=== PATIENT | female | born 1930 | race Caucasian/White ===

== ENCOUNTER 2019-09-06 09:43 | Emergency (ER) | payer MEDICARE ==
[~2019-09-06] VITALS: Ht 157.5 cm; Wt 51.4 kg
[~2019-09-06 09:43] MED LIST: ALEN70TA13 PO; CALC-855 PO; DIGO125T97 PO; FAMO40TA7 PO; LABE100T5 PO; LEVO88TA2 PO; RIVA20TA PO
--- NOTE | 2019-09-06 10:06 | NUR ---
MD in at bedside.
--- NOTE | 2019-09-06 10:14 | NUR ---
Pt changed into gown, placed on CM, NiBP, SpO2. On gurney, in POC. Warm blankets given. IV established.
--- NOTE | 2019-09-06 10:16 | NUR ---
Xray in at bedside.
[2019-09-06 10:36] LABS: BASOPHILS # (AUTO) 0.1 X10'3 (0-0.2); BASOPHILS % (AUTO) 1.4 % (0-1); EOSINOPHILS # (AUTO) 0.5 X10'3 (0-0.9); EOSINOPHILS % (AUTO) 10.7 % (0-6); HEMATOCRIT 44.2 % (35.0-45.0); HEMOGLOBIN 14.6 g/dl (12.0-16.0); LYMPHOCYTES # (AUTO) 1.5 X10'3 (1.1-4.8); LYMPHOCYTES % (AUTO) 30.2 % (21-51); MEAN CORPUSCULAR HEMOGLOBIN 31.5 PG (27.0-31.0); MEAN CORPUSCULAR HGB CONC 33.1 g/dL (33.0-36.5); MEAN CORPUSCULAR VOLUME 95.2 FL (78-98); MEAN PLATELET VOLUME 10.2 FL (7.4-10.4); MONOCYTES # (AUTO) 0.4 X10'3 (0-0.9); MONOCYTES % (AUTO) 7.2 % (2-12); NEUTROPHILS # (AUTO) 2.5 X10'3 (1.8-7.7); NEUTROPHILS % (AUTO) 50.5 % (42-75); PLATELET COUNT 113 X10'3 (140-440); RED BLOOD COUNT 4.65 X10'6 (4.20-5.60); RED CELL DISTRIBUTION WIDTH 13.8 % (11.5-14.5)
[2019-09-06 10:37] LABS: ALANINE AMINOTRANSFERASE 28 U/L (12-78); ALBUMIN 3.9 G/DL (3.4-5.0); ALBUMIN/GLOBULIN RATIO 1.3 (1.1-1.5); ALKALINE PHOSPHATASE 42 IU/L (46-116); ANION GAP 7 (8-16); ASPARTATE AMINO TRANSFERASE 21 U/L (10-37); BILIRUBIN,TOTAL 1.1 MG/DL (0.1-1.0); BLOOD UREA NITROGEN 16 MG/DL (7-18); BUN/CREATININE RATIO 16.8 (6.6-38.0); CALCIUM 8.9 MG/DL (8.5-10.1); CHLORIDE 110 MMOL/L (99-107); CREATININE 0.95 MG/DL (0.40-0.90); GLUCOSE 123 MG/DL (70-104); POTASSIUM 3.9 MMOL/L (3.5-5.1); SODIUM 147 MMOL/L (135-145); TOTAL CARBON DIOXIDE 30.1 MMOL/L (24-32); TOTAL PROTEIN 6.8 G/DL (6.4-8.2); eGFR 55 ML/MIN
[2019-09-06] MEDS ORDERED: iohexol 350MG/ML 100ml bottle IV ONE (12:05)
--- NOTE | 2019-09-06 12:12 | NUR ---
Pt to CT.
--- NOTE | 2019-09-06 13:11 | NUR ---
Complete care and report to JOSÉ MIGUEL Dias.
[2019-09-06] MEDS ORDERED: ipratropium/albuterol 3ml nebule NEB ONE (13:30)
--- NOTE | 2019-09-06 13:30 | NUR ---
pt resting vs updated, md at bedside
--- NOTE | 2019-09-06 14:09 | NUR ---
Umu espinoza in [facility] - 09/06/19 at 1410 by ESTEPHANIA Cynthia isbell [phone]
--- NOTE | 2019-09-06 14:10 | NUR ---
pt was taken for a walk her o2 stayed between 97 and 96, pt was coughing intermitiant and became short of breath after walking a loop around the ER. pt was placed back in bed and began to breathe normally after about 2 min.
[2019-09-06] MEDS ORDERED: predniSONE 20 mg tablet PO ONE (14:45)
[2019-09-06] MEDS ORDERED: PRED20TA PO (14:48)
[2019-09-06 15:10] VITALS: BP 154/102
== END 2019-09-06 15:11 | disposition home or self-care (01) ==
LOC: ER 09:44
DX: J98.8 Other specified respiratory disorders (principal); R06.02 Shortness of breath; I10 Essential (primary) hypertension; Z85.9 Personal history of malignant neoplasm, unspecified; Z90.710 Acquired absence of both cervix and uterus; Z88.8 Allergy status to other drugs, medicaments and biological substances; Z79.899 Other long term (current) drug therapy
CPT/HCPCS: 36415; 71045; 71275; 80053; 83880; 84484; 85025; 93005; 94640; 99285; J7512; Q9967; 94760

== ENCOUNTER 2020-02-21 14:06 | Emergency (ER) | payer MEDICARE ==
[~2020-02-21] VITALS: Ht 152.4 cm; Wt 52.3 kg
[~2020-02-21 14:06] MED LIST changes: -ALEN70TA13 PO; +ALEN70TA80 PO
[2020-02-21] MEDS ORDERED: PANT-47 PO (15:03)
[2020-02-21] MEDS ORDERED: ACET-3068 PO (15:03)
[2020-02-21] MEDS ORDERED: CELE-193 PO (15:03)
[2020-02-21] MEDS ORDERED: celeCOXIB 100mg capsule PO SCH (15:05)
[2020-02-21] MEDS ORDERED: acetaminophen w/codeine (30MG) #3 tablet PO ONE (15:05)
[2020-02-21 15:38] VITALS: BP 142/80
== END 2020-02-21 15:44 | disposition home or self-care (01) ==
LOC: ER 14:07
DX: S42.392A Other fracture of shaft of left humerus, initial encounter for closed fracture (principal); I10 Essential (primary) hypertension; Z90.49 Acquired absence of other specified parts of digestive tract; Z88.5 Allergy status to narcotic agent; Z88.8 Allergy status to other drugs, medicaments and biological substances; W18.39XA Other fall on same level, initial encounter; Y93.89 Activity, other specified; Y92.89 Other specified places as the place of occurrence of the external cause; Y99.8 Other external cause status
CPT/HCPCS: 29105; 73030; 99284